=== PATIENT | female | born 1945 | race African-American/Black ===

== ENCOUNTER 2020-11-21 11:36 | Inpatient (IN) | payer MEDICARE ==
[~2020-11-21] VITALS: Ht 160 cm; Wt 59.0 kg
[2020-11-21] MEDS ORDERED: LOSA100T31 PO (11:48)
[2020-11-21] MEDS ORDERED: LEVO25TA9 PO (11:48)
[2020-11-21] MEDS ORDERED: BACL10TA PO (11:48)
[2020-11-21] MEDS ORDERED: TAMS-12 PO (11:48)
--- NOTE | 2020-11-21 11:50 | NUR ---
ASSUME PT CARE, BIB BROTHER C/O NOTICING HER URINE SAMMY COLORED. PT STATES HX OF URINE RETENTION. PT ALSO C/O HIS STOOL COLORED "BLACK" PT IS AAO, HX OF STROKE W/ R SIDED WEAKNESS, AMBULATED W/ A CANE AT HOME. STABLE VITALS. AWAITING MD TORRES
--- NOTE | 2020-11-21 12:13 | NUR ---
DR ESTRADA AT BEDSIDE FOR EVAL.
--- NOTE | 2020-11-21 12:30 | NUR ---
RESCUE INSTRUCTOR AT BEDSIDE FOR BLOOD DRAW.
[2020-11-21 12:41] LABS: BASOPHILS # (AUTO) 0.1 K/uL (0.0-0.2); BASOPHILS % (AUTO) 0.9 % (0.0-2.0); EOSINOPHILS % (AUTO) 1.3 % (0.0-6.0); HEMATOCRIT 32 % (33-45); HEMOGLOBIN 10.7 g/dL (11.5-14.8); LYMPHOCYTES # (AUTO) 2.1 K/uL (0.8-4.8); LYMPHOCYTES % (AUTO) 23.6 % (20.0-44.0); MEAN CORPUSCULAR HGB CONC 34 g/dl (31.0-36.0); MEAN CORPUSCULAR VOLUME 79 fL (82-100); MONOCYTES # (AUTO) 0.5 K/uL (0.1-1.30); MONOCYTES % (AUTO) 6.1 % (2.0-12.0); NEUTROPHILS # (AUTO) 6.1 K/uL (1.8-8.9); NEUTROPHILS % (AUTO) 68.1 % (43.0-81.0); PLATELET COUNT (AUTO) 237 K/uL (150-450); RED BLOOD CELL COUNT(AUTO) 4.01 MIL/uL (4.0-5.2); WHITE BLOOD COUNT (AUTO) 8.9 K/uL (4.3-11.0)
--- NOTE | 2020-11-21 12:47 | NUR ---
UNABLE TO URINATE AT THIS TIME.
[2020-11-21 12:48] LABS: POTASSIUM 3.2 mmol/L (3.5-5.1)
[2020-11-21 12:54] LABS: ALBUMIN 3.4 g/dL (3.4-5.0); BILIRUBIN,DIRECT 0.2 mg/dL (0.0-0.2); BILIRUBIN,TOTAL 0.9 mg/dL (0.2-1.0); CALCIUM, SERUM 8.6 mg/dL (8.5-10.1); TOTAL PROTEIN, SERUM 7.3 g/dL (6.4-8.2)
[2020-11-21 12:57] LABS: OCCULT BLOOD STOOL POSITIVE (NEGATIVE)
[2020-11-21] MEDS ORDERED: IV NS 0.9% 500 ML BAG IV ONE (13:00)
[2020-11-21 13:39] LABS: BILIRUBIN,URINE Negative (NEGATIVE); COLOR,URINE YELLOW (YELLOW); LEUKOCYTE ESTERASE ,URINE Small (NEGATIVE); NITRITE, URINE Negative (NEGATIVE); PH,URINE 5.5 (5.0-8.0); PROTEIN,URINE >=300 mg/dl (NEGATIVE); UGLUCOSE Negative (NEGATIVE); UROBILINOGEN,URINE 0.2 EU/dL (0.2)
[2020-11-21 13:41] LABS: BACTERIA,URINE Few /HPF (None Seen); RBC,URINE 21-50 /HPF (0-2); SQUAMOUS EPITHELIAL CELL,UR Few /HPF (None Seen)
--- NOTE | 2020-11-21 13:44 | NUR ---
PAGED [facility].
--- NOTE | 2020-11-21 14:31 | NUR ---
NURSING SUP GAVE [phone].
--- NOTE | 2020-11-21 15:08 | NUR ---
REPORT GIVEN TO PANTERA. PT AWAITING TRANSFER TO FLOOR.
--- NOTE | 2020-11-21 15:46 | NUR ---
LEAD ELECTRICIAN NOTE RECEIVED PATIENT VIA [facility]. PATIENT IS A/O X4. PATIENT IS BREATHING EVENLY AND NONLABORED ON ROOM AIR. PATIENT DOES NOT COMPLAIN OF PAIN AT THIS TIME. PATIENT'S VITALS BP 134/75 HR 81 RR 18. TEMP 97.4 O2 SAT 100 ON ROOM AIR. PATIENT'S SKIN ASSESSED INTACT CLEAN AND DRY. PATIENT HAS JOHNSON CATHETER DRAINING CLEAR YELLOW URINE. PATIENT HAS IV ACCESS LEFT HAND # 20 GAUGE, PATENT AND INTACT. PATIENT'S BELONGINGS ACCOUNTED FOR. PATIENT WAS ORIENTED TO THE ROOM AND HOW TO USE THE CALL LIGHT. SAFETY MEASURES IN PLACE, BED LOW LOCKED AND CALL LIGHT WITHIN REACH. WILL CONTINUE TO MONITOR
[2020-11-21 16:00] VITALS: BP 134/75
[2020-11-21] MEDS ORDERED: ONDANSETRON HCL/PF 4 MG/2 ML VIAL IVP PRN (16:30)
[2020-11-21] MEDS ORDERED: MAG HYDROX/AL HYDROX/SIMETH 30 ML UDC PO PRN (16:30)
[2020-11-21] MEDS ORDERED: MAGNESIUM HYDROXIDE 30 ML UDC PO PRN (16:30)
[2020-11-21] MEDS ORDERED: Z GUARD REMEDY 2 OZ OINT TP PRN (16:30)
[2020-11-21] MEDS ORDERED: ACETAMINOPHEN 325 MG TABLET PO PRN (16:30)
[2020-11-21] MEDS: IV D5/0.45 NACL 1,000 ML IV PRN (16:41)
--- NOTE | 2020-11-21 18:38 | NUR ---
MS RN CLOSING NOTE PATIENT RESTING IN BED. PATIENT IS A/O X4. PATIENT IS BREATHING EVENLY AND NONLABORED ON ROOM AIR. PATIENT DOES NOT COMPLAIN OF PAIN AT THIS TIME. PATIENT HAS JOHNSON CATHETER DRAINING CLEAR YELLOW URINE. PATIENT HAS IV ACCESS LEFT HAND # 20 GAUGE, PATENT AND INTACT RUNNING D5 1/2 NS @ 75ML/HR. SAFETY MEASURES IN PLACE, BED LOW LOCKED AND CALL LIGHT WITHIN REACH. WILL ENDORSE TO ONCOMING SHIFT
--- NOTE | 2020-11-21 19:30 | NUR ---
RN OPENING NOTES PATIENT IN BED AWAKE, TALKING ON THE PHONE, PATIENT IS ABLE TO MAKE NEEDS KNOWN, A/O X 4. PATIENT IS CURRENTLY ON RA, TOLERATING, BREATHING EVEN AND UNLABORED. DOES NOT COMPLAIN OF ANY PAIN OR DISCOMFORT AT THIS TIME. PATIENT'S JOHNSON CATHETER OBSERVED TO BE DRAINING CLEAR YELLOW URINE. PATIENT'S IVF INFUSING WELL. SAFETY MEASURES IN PLACE: BED LOCKED IN LOWEST POSITION, CALL LIGHT WITHIN REACH, SIDE RAILS UP. WILL MONITOR PATIENT CLOSELY.
[2020-11-21 20:00] VITALS: BP 133/68
[2020-11-21] MEDS: PANTOPRAZOLE 40 MG VIAL IV SCH (22:07)
[2020-11-22] MEDS: IV D5/0.45 NACL 1,000 ML IV PRN ×2 (05:41→20:22)
[2020-11-22] MEDS ORDERED: POTASSIUM CHLORIDE 10 MEQ TABLET.SA PO ONE ×2 (06:00→23:00)
[2020-11-22 07:02] LABS: BASOPHILS % (AUTO) 0.6 % (0.0-2.0); EOSINOPHILS % (AUTO) 4.9 % (0.0-6.0); HEMATOCRIT 28 % (33-45); HEMOGLOBIN 9.5 g/dL (11.5-14.8); LYMPHOCYTES # (AUTO) 1.8 K/uL (0.8-4.8); LYMPHOCYTES % (AUTO) 29.2 % (20.0-44.0); MEAN CORPUSCULAR HGB CONC 34 g/dl (31.0-36.0); MEAN CORPUSCULAR VOLUME 79 fL (82-100); MONOCYTES # (AUTO) 0.4 K/uL (0.1-1.30); MONOCYTES % (AUTO) 6.1 % (2.0-12.0); NEUTROPHILS # (AUTO) 3.7 K/uL (1.8-8.9); NEUTROPHILS % (AUTO) 59.2 % (43.0-81.0); PLATELET COUNT (AUTO) 223 K/uL (150-450); RED BLOOD CELL COUNT(AUTO) 3.58 MIL/uL (4.0-5.2); WHITE BLOOD COUNT (AUTO) 6.2 K/uL (4.3-11.0)
--- NOTE | 2020-11-22 07:15 | NUR ---
MS RN OPENING NOTES RECEIVED PATIENT ON BED, AWAKE, A&O X 4. ON ROOM AIR WITH NO RESPIRATORY DISTRESS NOTED. WITH EVEN AND UNLABORED BREATHING. NO COMPLAIN OF PAIN AT THIS TIME. WITH IV ACCESS ON LEFT HAND WITH IVF D5 1/2NS AT 75ML/HR INFUSING WELL. SAFETY MEASURES IN PLACE; BED ON LOWEST LOCKED POSITION, KEPT SIDE RAILS RAISED X2. CALL LIGHT AND BEDSIDE TABLE WITHIN REACH AT ALL TIMES. WILL CONTINUE TOO MONITOR PATIENT.
--- NOTE | 2020-11-22 07:25 | NUR ---
RN CLOSING NOTE PATIENT STABLE AT THIS TIME. ENDORSED TO DAY SHIFT NURSE JOGABRIEL FOR SALLY.
[2020-11-22 07:28] LABS: CALCIUM, SERUM 8.5 mg/dL (8.5-10.1); MAGNESIUM 1.8 mg/dL (1.8-2.4); PHOSPHORUS 2.8 mg/dL (2.5-4.9); POTASSIUM 3.4 mmol/L (3.5-5.1)
[2020-11-22] MEDS ORDERED: POTASSIUM CHLORIDE 20 MEQ TAB.PRT.SR PO ONE (09:00)
[2020-11-22] MEDS: PANTOPRAZOLE 40 MG VIAL IV SCH ×2 (09:36→20:15)
[2020-11-22] MEDS: LEVOTHYROXINE SODIUM 25 MCG TABLET PO SCH (09:36)
[2020-11-22] MEDS: TAMSULOSIN 0.4 MG CAP.SR.24H PO SCH (09:59)
--- NOTE | 2020-11-22 10:00 | NUR ---
MS RN NOTE RECEIVED A CALL FROM SURGERY THAT PATIENT WILL HAVE POSSIBLE EGD TODAY AND TO KEEP THE PATIENT ON NPO FROM HERE ON. PATIENT NOTIFIED AND AWAITING PROCEDURE.
[2020-11-22] MEDS ORDERED: ANESTHESIA TRAY IN PYXIS 1 EA TRAY MC ONE (10:03)
--- NOTE | 2020-11-22 10:24 | NUR ---
MS RN NOTE RECEIVED CALL FROM SURGERY THAT PATIENT WILL UNDERGO EGD. RN NOTIFIED PATIENT WAS ON CLEAR LIQUID DIET AND LAST INTAKE WAS AROUND 0930h. SHE SAID OLGA LIDIA NEIL HAVE PROCEDURE TODAY. CONSENT SECURED. AWAITING PROCEDURE, KEPT NPO AT THIS TIME. WILL CONTINUE TO MONITOR PATIENT.
--- NOTE | 2020-11-22 12:45 | NUR ---
MS RN NOTE PATIENT FORGOT TO STAY ON NPO AND HAD EATEN. OR NURSES CAME CAME TO SEE THE PATIENT. NURSES WILL CALL IF THEY WILL PUSH THROUGH WITH THE PROCEDURE. AWAITING FOR CALL FROM OR. WILL CONTINUE TO MONITOR PATIENT.
--- NOTE | 2020-11-22 17:20 | NUR ---
MS RN NOTE PATIENT'S PROCEDURE WILL NOT PUSH THROUGH TODAY. WILL RESUME PATIENT'S DIET AND WILL PREPARE PATIENT TOMORROW FOR POSSIBLE PROCEDURE.
--- NOTE | 2020-11-22 19:00 | NUR ---
MS RN CLOSING NOTES RECEIVED PATIENT ON BED, AWAKE, A&O X 4. ON ROOM AIR WITH NO RESPIRATORY DISTRESS NOTED. WITH EVEN AND UNLABORED BREATHING. NO COMPLAIN OF PAIN AT THIS TIME. WITH IV ACCESS ON LEFT HAND WITH IVF D5 1/2 NS AT 75ML/HR INFUSING WELL. SAFETY MEASURES IN PLACE; BED ON LOWEST LOCKED POSITION, KEPT SIDE RAILS RAISED X2. CALL LIGHT AND BEDSIDE TABLE WITHIN REACH AT ALL TIMES. WILL ENDORSE PATIENT FOR CONTINUITY OF CARE.
--- NOTE | 2020-11-22 19:30 | NUR ---
RN OPENING NOTES PATIENT IN BED AWAKE, PATIENT IS ABLE TO MAKE NEEDS KNOWN, A/O X 4. PATIENT IS CURRENTLY ON RA, TOLERATING, BREATHING EVEN AND UNLABORED. DOES NOT COMPLAIN OF ANY PAIN OR DISCOMFORT AT THIS TIME. PATIENT'S JOHNSON CATHETER OBSERVED TO BE DRAINING CLEAR YELLOW URINE. PATIENT HAS A IVF INFUSING WELL, D 1/2 NS RUNNING AT 75 ML/HR. SAFETY MEASURES IN PLACE: BED LOCKED IN LOWEST POSITION, CALL LIGHT WITHIN REACH, SIDE RAILS UP. NPO STATUS ENDORSED FOR POST MIDNIGHT. WILL MONITOR PATIENT CLOSELY.
[2020-11-22 20:00] VITALS: BP 126/65
--- NOTE | 2020-11-22 22:30 | NUR ---
RN NOTE OBTAINED KDUR 10 MEQ X 1 NOW FOR POTASSIUM LEVEL OF 3.4. ORDER FROM SHANT AMARO.
[2020-11-23 07:24] LABS: CALCIUM, SERUM 8.7 mg/dL (8.5-10.1); POTASSIUM 3.7 mmol/L (3.5-5.1)
--- NOTE | 2020-11-23 07:48 | NUR ---
RN CLOSING NOTE ENDORSED TO LUIZ WALLS FOR SALLY. NPO STATUS AND EGD PROCEDURE ENDORSED. ALL NEEDS MET AND ATTENDED. ALL ORDERS CARRIED OUT. NO SIGNIFICANT CHANGES IN PATIENT'S HEALTH.
--- NOTE | 2020-11-23 08:00 | NUR ---
RN OPENING NOTE PT AWAKE IN BED. ON RA WITH NO SOB OR RESPIRATORY DISTRESS PRESENT. A/O X4 AND LITHUAN[place] SPEAKING. NO COMPLAINT OF PAIN OR NAUSEA AT THIS TIME. NO IRRIGATION ENGINEER PRESENT. NO EDEMA PRESENT. AMBULATORY WITH ASSIST WITH COMMODE AT BEDSIDE. POSITIVE FOR STOOL OB. NPO STATUS DUE TO UPCOMING EGD. SKIN IS INTACT. IV PRESENT ON L HAND 20G AND FLUSHES WELL. F/C PRESENT. LABS AND ORDERS REVIEWED. SAFETY MEASURES IN PLACE. SIDE RAILS RAISED. BED LOWERED. CALL LIGHT WITHIN REACH. WILL CONTINUE TO MONITOR.
[2020-11-23 08:14] VITALS: BP 147/78
[2020-11-23] MEDS: LEVOTHYROXINE SODIUM 25 MCG TABLET PO SCH (08:14)
[2020-11-23] MEDS: TAMSULOSIN 0.4 MG CAP.SR.24H PO SCH (08:14)
[2020-11-23] MEDS: PANTOPRAZOLE 40 MG VIAL IV SCH ×2 (08:56→21:12)
[2020-11-23 16:47] VITALS: BP 123/60
--- NOTE | 2020-11-23 18:09 | NUR ---
RN CLOSING NOTE PT AWAKE IN BED. ON RA WITH NO SOB OR RESPIRATORY DISTRESS PRESENT. A/O X4 AND BENGALI SPEAKING. NO COMPLAINT OF PAIN OR NAUSEA AT THIS TIME. NO CNA LTC PRESENT. NO EDEMA PRESENT. AMBULATORY WITH ASSIST WITH COMMODE AT BEDSIDE. POSITIVE FOR STOOL OB. NPO STATUS DUE TO UPCOMING EGD. SKIN IS INTACT. IV PRESENT ON L HAND 20G AND FLUSHES WELL. F/C PRESENT. LABS AND ORDERS REVIEWED. SAFETY MEASURES IN PLACE. SIDE RAILS RAISED. BED LOWERED. CALL LIGHT WITHIN REACH. REPORT TO BE GIVEN TO NIGHT NURSE FOR SALLY.
--- NOTE | 2020-11-23 18:52 | NUR ---
RN NOTE PT REQUESTING TO TALK TO CHARGE NURSE MARSHALL AND DR YAN REGARDING TIME EGD WILL BE DONE TOMORROW. PT STATES THAT SHE WILL GO HOME TONIGHT IF NOT NOTIFIED OF EXACT PROCEDURE TIME. STATES "TIME IS MONEY." EDUCATED PT ON RISKS AND BENEFITS OF GOING AGAINST MEDICAL ADVICE. CHARGE NURSE NOTIFIED. WILL CONTINUE TO MONITOR.
--- NOTE | 2020-11-23 19:07 | NUR ---
RN NOTES: RECEIVED AWAKE ON BED, A/OX4, SKIN IS INTACT, 1-2 PERSON ASSIST.JOHNSON CATH ON SITE DRAINING INTO SAMMY COLORED URINE AT 100 CC LEVEL, IVF ON LH G#20, WITH IVF OF D5 1/N NS @ 75 ML/HR. -FOR NPO POST MIDNIGHT FOR POSSIBLE EGD TOMORROW , NEED TO FOLLOW UP AND CONFIRM SCHEDULE WITH OR OR NURSING NETWORK DIAGNOSTIC SUPPORT SPECIALIST IN THE NIGHT. -AFTER ENDORSEMENT, RN TALK TO THE PATIENT AND STAYED WITH HER FOR MORE THAN 20 MINUTES, SHE VERBALIZED THAT SHE IS VERY UPSET WITH THE PROCEDURE WHICH WAS KEEP ON DELAYING AND SHE EVEN SAW THE GI DOCTOR AND SPEAK WITH HIM YESTERDAY AND SHE WAS REST ASSURED THAT PROCEDURE WAS SUPPOSED TO BE DONE TODAY, THEN DELAYED TOOK PLACE, SHE JUST WANT TO KNOW IF THEY WILL BE ABLE TO SCHEDULE AND DO IT OR ELSE SHE DONT WANNA WASTE HER TIME STAYING IN THE HOSPITAL, JUST WAITING. -SHE EVEN PRAISE FIDEH, HER MOM WAS ADMITTED HERE BACK IN 2019, AND SHE LIKE THE CARE.UNFORTUNATELY SHE WAS VERY DISAPPOINTMENT WITH WHAT IS GOING ON RIGHT NOW. -RN EXPLAINED TO HER WE DIDNT MEAN TO KEEP HER WAITINF BUT WE WILL TRY TO COMMUNICATE ALL HER CONCERN WITH THE CN AND WILL F/U HER SCHEDULE TOMORROW, SHE IS GIVING WARNING, IF THEY WONT BE ABLE TO DO IT SHE WANNA GO HOME, SHE HAS A LOT OF THINGS SCHEDULE FOR NEXT WEEK.
[2020-11-23 20:00] VITALS: BP 136/69
--- NOTE | 2020-11-23 20:25 | NUR ---
RN NOTES: -RN/CN WAS NOTIFIED OF PATIENT CONCERNED, AND SHE SAID, WE CANNOT GIVE ANY ASSURANCE WE DONT HAVE HER SCHEDULE YET, WE HAVE TO WAIT.
[2020-11-23] MEDS: IV D5/0.45 NACL 1,000 ML IV PRN (21:49)
--- NOTE | 2020-11-23 21:50 | NUR ---
RN NOTES: IV CANNULA OLD SITE IS SWELLIMNG WITH PAIN, RECITED TO RFA G#20, PATENT, PANTOPRAZOLE GIVEN, IVF OF D5%1/2 NS AT 75 ML/HR RESUMED.
--- NOTE | 2020-11-23 21:58 | NUR ---
LUIZ WETZEL; COMPLAINED OF GENERALIZED PAIN, SHE WAS ASKING FOR A STRONGER PILL, EXPLAINED TO HER WE ONLY HAVE TYLENOL FOR HER, SHE AGREED, GIVEN TO HER, NON PHARMACOLOGIC INTERVENTION RENDERED.
--- NOTE | 2020-11-24 05:19 | NUR ---
RN NOTES: AROUND 0400, TURNING AND REPOSITIONING DONE, GIVEN ICE PACK FOR THE BACK, SHE EXPRESS HER THANKFULNESS AND SENSE OF RELIEF. NEEDS ATTENDED.
--- NOTE | 2020-11-24 05:20 | NUR ---
RN NOTES: ON NPO, ASLEEP AT SHORT INTERVALS.
--- NOTE | 2020-11-24 07:11 | NUR ---
RN NOTES: ICE PACK PROVIDED FOR BACK PAIN, FELT SOME RELIEF, NEEDS ATTENDED, STILL AWAITING FOR SCHEDULE OF EGD IN THE MORNING, F/U WITH CN/RN AND NSG VOCAL PERFORMER NO SCHEDULE WAS CONFIRMED, BMX1, JOHNSON CATH OUTPUT-500, ENDORSED FOR CONTINUITY OF CARE.
[2020-11-24 08:23] LABS: BASOPHILS % (AUTO) 0.7 % (0.0-2.0); EOSINOPHILS % (AUTO) 6.1 % (0.0-6.0); HEMATOCRIT 32 % (33-45); HEMOGLOBIN 10.9 g/dL (11.5-14.8); LYMPHOCYTES # (AUTO) 1.8 K/uL (0.8-4.8); LYMPHOCYTES % (AUTO) 33.4 % (20.0-44.0); MEAN CORPUSCULAR HGB CONC 34 g/dl (31.0-36.0); MEAN CORPUSCULAR VOLUME 79 fL (82-100); MONOCYTES # (AUTO) 0.3 K/uL (0.1-1.30); MONOCYTES % (AUTO) 5.6 % (2.0-12.0); NEUTROPHILS % (AUTO) 54.2 % (43.0-81.0); PLATELET COUNT (AUTO) 250 K/uL (150-450); RED BLOOD CELL COUNT(AUTO) 4.09 MIL/uL (4.0-5.2); WHITE BLOOD COUNT (AUTO) 5.5 K/uL (4.3-11.0)
[2020-11-24] MEDS: TAMSULOSIN 0.4 MG CAP.SR.24H PO SCH (08:28)
[2020-11-24] MEDS: LEVOTHYROXINE SODIUM 25 MCG TABLET PO SCH (08:28)
[2020-11-24 09:18] LABS: CALCIUM, SERUM 8.8 mg/dL (8.5-10.1); POTASSIUM 4.2 mmol/L (3.5-5.1)
[2020-11-24] MEDS: PANTOPRAZOLE 40 MG VIAL IV SCH (09:23)
--- NOTE | 2020-11-24 13:01 | NUR ---
RN OPENING NOTE PT AWAKE IN BED. ON RA WITH NO SOB OR RESPIRATORY DISTRESS PRESENT. A/O X4 AND MALTESE SPEAKING. NO COMPLAINT OF PAIN OR NAUSEA AT THIS TIME. NO COMPANY DRIVER PRESENT. NO EDEMA PRESENT. AMBULATORY WITH ASSIST WITH COMMODE AT BEDSIDE. POSITIVE FOR STOOL OB. NPO STATUS DUE TO UPCOMING EGD. SKIN IS INTACT. IV PRESENT ON L FA 20G AND FLUSHES WELL. F/C PRESENT. LABS AND ORDERS REVIEWED. SAFETY MEASURES IN PLACE. SIDE RAILS RAISED. BED LOWERED. CALL LIGHT WITHIN REACH. WILL CONTINUE TO MONITOR.
[2020-11-24] MEDS ORDERED: CEPH500C2 PO (13:49)
--- NOTE | 2020-11-24 14:36 | NUR ---
RN NOTE PT LEFT AMA. IV LINE REMOVED. ID BAND REMOVED. PT REFUSE SKIN ASSESSMENT. PT REFUSE TO SIGN AMA FORM. STATES "I LEFT BECAUSE THE DOCTOR FAILED ME." REFUSED TO SIGN BELONGINGS LIST. ALL BELONGINGS CHECKED AND GIVEN TO PT. NOTIFIED AND CN. OKAYED BY BOTH TO GO HOME. PT LEFT HOME VIA PRIVATE CAR ACCOMPANIED BY BROTHER.
== END 2020-11-24 14:00 | disposition left against medical advice (07) | DRG 377 ==
LOC: ER 11:39 → MED 15:06
PROVIDERS: ADMIT Internal Medicine; ATTEND Internal Medicine
DX: K92.2 Gastrointestinal hemorrhage, unspecified (principal); N17.0 Acute kidney failure with tubular necrosis; N39.0 Urinary tract infection, site not specified; I10 Essential (primary) hypertension; E86.0 Dehydration; D25.9 Leiomyoma of uterus, unspecified; D50.9 Iron deficiency anemia, unspecified; E87.6 Hypokalemia; N31.9 Neuromuscular dysfunction of bladder, unspecified; Z79.890 Hormone replacement therapy; Z87.11 Personal history of peptic ulcer disease; Z20.822 Contact with and (suspected) exposure to COVID-19; R33.9 Retention of urine, unspecified; N80.9 Endometriosis, unspecified; B96.4 Proteus (mirabilis) (morganii) as the cause of diseases classified elsewhere; B95.1 Streptococcus, group B, as the cause of diseases classified elsewhere
CPT/HCPCS: 36415; 71045-TC; 80048-TC; 80076-TC; 81001; 82272-TC; 83735-TC; 84100-TC; 85025-TC; 85730-TC; 87081-TC; 87086-TC; 87186-TC; C9113; C9803; G0378; J3490; J7040